=== PATIENT | male | born 1955 | race Two or more races ===

== ENCOUNTER 2020-04-16 23:05 | Inpatient (IN) | payer BC, OTHER ==
[~2020-04-16] VITALS: Ht 167.6 cm; Wt 77.0 kg
[2020-04-17] MEDS ORDERED: ACETAMINOPHEN 325 MG TAB PO PRN (05:30)
[2020-04-17] MEDS ORDERED: ONDANSETRON HCL 4 MG/2 ML VIAL IV PRN (05:30)
[2020-04-17] MEDS ORDERED: DOCUSATE SOD 100 MG CAP PO PRN (05:30)
[2020-04-17] MEDS ORDERED: MORPHINE SULF INJ 2 MG/ML SYRINGE 1ML IV PRN ×2 (05:30→12:15)
[2020-04-17 06:37] LABS: Basophils # (auto) 0 10 ^3/uL (0-0.2); Basophils % (auto) 0.4 % (0.0-2.0); Eosinophils # (auto) 0 10 ^3/uL (0-0.8); Eosinophils % (auto) 0.2 % (0.0-7.0); Hematocrit 39.7 % (41.0-53.0); Hemoglobin 13.3 g/dL (13.5-17.5); Lymphocytes # (auto) 2.4 10 ^3/uL (0.4-5.4); Lymphocytes % (auto) 31.2 % (10.0-50.0); Mean Corpuscular Hemoglobin 32.4 pg (28.0-32.0); Mean Corpuscular Hgb Conc. 33.4 g/dL (32.0-36.0); Monocytes # (auto) 0.7 10 ^3/uL (0-1.3); Monocytes % (auto) 8.8 % (0.0-12.0); Neutrophils # (auto) 4.6 10 ^3/uL (1.6-8.6); Neutrophils % (auto) 59.4 % (37.0-80.0); Platelet Count (auto) 234 10^3/uL (140-450); Red Blood Cells 4.09 10^6/uL (4.5-5.90); White Blood Cell 7.8 10^3/uL (4.4-10.8)
[2020-04-17 06:55] LABS: INR 1.04 (0.9-1.15); Partial Thromboplastin Time 26.5 sec (23.64-32.05)
[2020-04-17 06:57] LABS: Albumin 3.3 g/dL (3.4-5.0); BUN/Creatinine Ratio 14.4; Calcium 8.1 mg/dL (8.5-10.1); Potassium 3.6 mmol/L (3.5-5.1)
[2020-04-17 07:00] LABS: Bilirubin, Total 1.5 mg/dL (0.2-1.0)
[2020-04-17 07:05] LABS: Cholesterol 185 mg/dL (< 200); HDL Cholesterol 47 mg/dL (40-59); LDL Cholesterol 142 mg/dL (< 100); Triglycerides 70 mg/dL (< 150)
[2020-04-17 08:26] LABS: Urine Bacteria NONE SEEN /hpf (None Seen); Urine Blood Negative /uL (Negative); Urine Mucus FEW (None Seen); Urine Specific Gravity 1.022 (1.001-1.035); Urine WBC 1 /hpf (0 - 3)
--- NOTE | 2020-04-17 11:00 | NUR ---
Med/Surg admit from [facility] admitted to MED/SURG unit after SBAR received. Patient oriented to FRAN ARENAS RN primary RN, unit, room, bed, and unit policies regarding patient care and visiting hours. Patient weighed by bedscale and encouraged to call if they need something. Bed is locked and in lowest position. Call light within reach. All questions and concerns addressed, patient verbalized understanding.
[2020-04-17 13:00] VITALS: BP 131/67
[2020-04-17] MEDS: HYDROcodone-ACET 5/325MG TAB PO PRN ×2 (15:16→22:15)
[2020-04-17 15:18] VITALS: BP 131/67
[2020-04-17 17:00] VITALS: BP 114/70
--- NOTE | 2020-04-17 19:50 | NUR ---
Opening Shift Note Assumed care of patient, awake and alert oriented x4. No S/S of distress/SOB noted. Instructed on POC and to call for assist PRN. Bed is in lowest locked position with bed rails up x2 and call light is within reach of the patient.
[2020-04-17 22:00] VITALS: BP 131/79
[2020-04-18] VITALS (13 sets, daily range): BP systolic 98–129; BP diastolic 64–79
--- NOTE | 2020-04-18 07:40 | NUR ---
Opening Note Assumed pt care from NOC RN. Pt is a/ox4 with no s/s of distress or SOB. Pt is currently laying in bed with no complaints at this time. Pt has been NPO since 0000 for scheduled procedure. Discussed POC with pt; pt verbalized understanding. Safety measures maintained with call light within reach, bed in lowest position and side rails up. Will continue to monitor for changes.
--- NOTE | 2020-04-18 10:49 | NUR ---
Pt Taken Down to Pre-Op Pt taken to pre-op via bed. Pt is a/ox4 with no s/s of distress or SOB. Report given to Pre-Op staff. All questions were answered.
[2020-04-18] MEDS ORDERED: ceFAZolin 1GM/50ML 50 ML IV ONE (11:15)
--- NOTE | 2020-04-18 12:10 | NUR ---
Dr Echevarria [facility] MD updated on pt's status. No new orders at this time.
[2020-04-18] MEDS ORDERED: TETRACAINE 1% INJ 2 ML VIAL IJ ONE ×2 (13:14→13:16)
[2020-04-18] MEDS ORDERED: LIDOCAINE 1% (LOCAL ANESTH.) PF 5ml SDV ONE (13:16)
[2020-04-18] MEDS ORDERED: MIDAZOLAM HCL 1MG/1ML-2 ML VIAL ONE ×2 (13:19→13:33)
[2020-04-18] MEDS ORDERED: MORPHINE SULF(PF) 0.5MG/ML 10ML VIAL ONE (13:21)
[2020-04-18] MEDS ORDERED: fentaNYL CITRATE 100 MCG/2 ML VL ONE (13:32)
[2020-04-18] MEDS ORDERED: LIDOCAINE 1% HCL (LOCAL ANESTH.) INJ 20ML MDV ONE (13:44)
[2020-04-18] MEDS: BUPIVACAINE 0.25% INJ 50ML VIAL ONE ×2 (13:44→14:20)
[2020-04-18] MEDS ORDERED: diphenhdrAMINE HCL 50 MG/1 ML VL ONE (13:48)
[2020-04-18] MEDS ORDERED: PROPOFOL 10 MG/ML 20 ML IV ONE (14:00)
[2020-04-18] MEDS ORDERED: KETOROLAC TROMETH 30 MG/ML 1ML VIAL IV PRN (14:15)
[2020-04-18] MEDS ORDERED: HYDROmorphone HCL 2 MG/ML VL IV PRN (14:15)
[2020-04-18] MEDS ORDERED: ePHEDrine SULFATE 50 MG/ML AMP IV PRN (14:15)
[2020-04-18] MEDS ORDERED: NALOXONE HCL 0.4 MG/ML VIAL IV PRN ×2 (14:15)
[2020-04-18] MEDS ORDERED: ONDANSETRON HCL 4 MG/2 ML VIAL IV PRN ×2 (14:15)
[2020-04-18] MEDS ORDERED: diphenhdrAMINE HCL 50 MG/1 ML VL IV PRN (14:15)
[2020-04-18] MEDS: LACTATED RINGER'S 1,000 ML IV SCH (14:44)
[2020-04-18] MEDS ORDERED: ceFAZolin 1GM/50ML 50 ML IV SCH (14:45)
--- NOTE | 2020-04-18 16:35 | NUR ---
Pt Back on Unit Transported pt back on unit. Pt is a/ox4 with no s/s of distress or SOB. Placed pt on continuous pulse ox, currently reading in high 90s on RA. BP machine is present in room to asses pt. Safety measures maintained with call light within reach, bed in lowest position and side rails up. Will continue to monitor. Pt placed on tele 77.
--- NOTE | 2020-04-18 16:51 | NUR ---
Tolerating Fluids Pt is tolerating fluids at this time. Will continue to monitor.
--- NOTE | 2020-04-18 19:40 | NUR ---
RECEIVED PATIENT FROM DAY SHIFT RN. PATENT RESTING IN BED. NO S/S OF DISTRESS NOTED. DENIED PAIN FOR NOW. DRESSING ON LEFT HIP C/D/I. FRIEND CATH IN PLACE DRAINING TO GRAVITY. VITALS, BP 100/70, HR 80, O2 SAT 99% ON RA WITH RR18. POC INSTRUCTED AND ENCOURAGED PATIENT TO CALL FOR [employer] REPAIRER IF NEEDED. BED IN LOWEST POSITION WITH SIDE RAILS UP X 2. CALL LESLIE WITHIN REACH. ALARM ON. CONTINUE TO MONITOR FOR CHANGES Q1N AND PRN.
--- NOTE | 2020-04-18 20:28 | NUR ---
CALLED PHARMACY TO RESCHEDULE FOR ANTIBIOTIC. CONTINUE TO MONITOR.
[2020-04-18] MEDS: ceFAZolin 1GM/50ML 50 ML IV SCH (20:46)
[2020-04-18] MEDS: SODIUM CHLOR 0.9% PF (SALINE LOCK) 10ML VIAL/SYR IV SCH (21:30)
--- NOTE | 2020-04-18 23:44 | NUR ---
PATIENT RESTING IN BED WITH EYES CLOSED. NO S/S OF DISTRESS NOTED. BREATHING EVEN AND UNLABORED. VITALS Q1H CONTINUOUSLY. CURRENT BP 98/67, HR 97, RR 18, O2 SAT 96% ON RA. CONTINUE TO MONITOR.
[2020-04-19] VITALS (23 sets, daily range): BP systolic 99–126; BP diastolic 62–110
[2020-04-19] MEDS: LACTATED RINGER'S 1,000 ML IV SCH ×3 (00:44→20:44)
[2020-04-19] MEDS: ceFAZolin 1GM/50ML 50 ML IV SCH ×2 (03:09→09:18)
--- NOTE | 2020-04-19 03:10 | NUR ---
PATIENT WOKE UP, NO S/S OF DISTRESS NOTED. DENIED PAIN FOR NOW. CONTINUE TO MONITOR.
[2020-04-19] MEDS: SODIUM CHLOR 0.9% PF (SALINE LOCK) 10ML VIAL/SYR IV SCH ×3 (06:23→22:24)
[2020-04-19 06:26] LABS: Hemoglobin 13.1 g/dL (13.5-17.5)
[2020-04-19 06:52] LABS: Albumin 2.9 g/dL (3.4-5.0); BUN/Creatinine Ratio 9.8; Calcium 8.5 mg/dL (8.5-10.1); Potassium 4.4 mmol/L (3.5-5.1)
[2020-04-19 06:55] LABS: Bilirubin, Total 1.7 mg/dL (0.2-1.0); Total Protein 7.1 g/dL (6.4-8.2)
[2020-04-19] MEDS: ENOXAPARIN SOD 40 MG/0.4 ML SYRINGE SC SCH (09:19)
[2020-04-19] MEDS: HYDROcodone-ACET 5/325MG TAB PO PRN (10:08)
--- NOTE | 2020-04-19 11:57 | NUR ---
ASSESSED PT FOR PRN MED NEB TX, PT ON RA WITH SPO2 94%,, HR 84, RR 16. PT COMFORTABLE SLEEPING SHOWING NO SIGNS OF DISTRESS. NO INDICATION FOR PRN MED NEB AT THIS TIME.
--- NOTE | 2020-04-19 16:18 | NUR ---
[facility] [employer] [facility] Chanelle [phone] and left message asking for contracted vendors for home health and walker.
--- NOTE | 2020-04-19 19:50 | NUR ---
PULSE OX CHECK. CONTINUOUS POX AT BEDSIDE. SPO2 95% ON RA, HR 98. NO RESPIRATORY DISTRESS NOTED. WILL CONTINUE TO MONITOR.
--- NOTE | 2020-04-19 22:00 | NUR ---
IV removal IV DC'd with clean sterile technique, catheter fully intact. Pressure dressing applied to site. Patient tolerated well.
--- NOTE | 2020-04-19 22:00 | NUR ---
IV insertion IV access obtained, via clean sterile technique by inserting 22 gauge catheter at LEFT FOREARM after 1 attempt(s). IV secured properly. No trauma to site. Patient tolerated well.
[2020-04-20 04:47] VITALS: BP 121/51
--- NOTE | 2020-04-20 05:36 | NUR ---
Rico catheter dc'd Order to discontinue rico catheter. Rico dc'd with clean technique following deflation of balloon. Patient tolerated well with no complaints of pain. Continue care.
[2020-04-20 05:51] LABS: Hematocrit 36.9 % (41.0-53.0); Hemoglobin 12.4 g/dL (13.5-17.5)
[2020-04-20] MEDS: SODIUM CHLOR 0.9% PF (SALINE LOCK) 10ML VIAL/SYR IV SCH (06:00)
[2020-04-20] MEDS: LACTATED RINGER'S 1,000 ML IV SCH (06:44)
[2020-04-20 08:00] VITALS: BP 120/68
[2020-04-20 09:00] VITALS: BP 120/68
--- NOTE | 2020-04-20 10:00 | NUR ---
Assessment Patient is a 64-year-old male who is alert and oriented. Prior to admission patient lived home with his and function independently. Patient can care for his own ADLs. Per patient he does not have any medical equipment now. Per patient he will return to his prior living arrangements post discharge and family will transport her home. Advise patient there is a social service consult for home health physical therapy and walker. Informed patient clinical information will be faxed to contracted agency for home health and [facility] for walker. Informed patient he has the right to participate in all discharge planning. Patient verbalized understanding and agreed to discharge plan. Addendum: 04/20/20 at 1400 by JAIMEE ROBERSON Amended: Links added.
[2020-04-20] MEDS: ENOXAPARIN SOD 40 MG/0.4 ML SYRINGE SC SCH (10:55)
--- NOTE | 2020-04-20 11:29 | NUR ---
PATIENT TO DECLINE HOME HEALTH PER JONATHAN DUE TO CO PAY. PATIENT WOULD LIKE WALKER AND OUTPATIENT THERAPY AT [place]
[2020-04-20 13:00] VITALS: BP 112/71
--- NOTE | 2020-04-20 14:00 | NUR ---
D/C planning Clinical information was faxed to [facility], [facility] and [facility]. Davie with [facility] advised me patient has a 35% co-pay of 60 to 100 dlls, per visit. Per Davie with [facility] they can accept patient if he agrees with payment. Informed patient regarding co-pay. Per patient he will do outpatient physical therapy and will contact [facility] outpatient physical therapy upon discharge day. Informed patient I will inform bedside nurse. Informed patient walker will be deliver to front lobby. Patient verbalize understanding d/c plan. Informed JADYN Garcia.
--- NOTE | 2020-04-20 14:38 | NUR ---
PATIENT DISCHARGED HOME WITH FAMILY. TELEMETRY BOX REMOVED AND RETURNED TO TELEMETRY DEPARTMENT. ALL IV ACCESS DISCONTINUED. ALL DISCHARGE INSTRUCTIONS GIVEN. ALL DISCHARGE PAPERWORK SIGNED.
== END 2020-04-20 14:30 | disposition home health service (06) | DRG 482 ==
LOC: ER 23:05 → EDBD 23:05 → OVERFLOW 23:06 → WEST WING 04-17 11:05 → TELE-WESTW 04-18 17:03
PROVIDERS: ADMIT Hospitalist; ATTEND Family Medicine
PROC: 0QS734Z Reposition Left Upper Femur with Internal Fixation Device, Percutaneous Approach (ICD-10-PCS; principal; 2020-04-18 13:20)
DX: S72.142A Displaced intertrochanteric fracture of left femur, initial encounter for closed fracture (principal); E78.00 Pure hypercholesterolemia, unspecified; E78.5 Hyperlipidemia, unspecified; W11.XXXA Fall on and from ladder, initial encounter; Z79.01 Long term (current) use of anticoagulants; Z83.3 Family history of diabetes mellitus; Y93.89 Activity, other specified; Y92.89 Other specified places as the place of occurrence of the external cause; Y99.8 Other external cause status; Z20.828 Contact with and (suspected) exposure to other viral communicable diseases
CPT/HCPCS: 36415; 70450; 71045; 74176; 80053; 80061; 81001; 85014; 85018; 85025; 85610; 85730; 86850; 86900; 86901; 93005; A4565; G0378; J0690; J2001; J2250; J2704; J3490